=== PATIENT | male | born 1970 | race Hispanic/Latino ===

== ENCOUNTER 2025-02-03 16:41 | Emergency (ER) | payer OTHER ==
[~2025-02-03] VITALS: Ht 165.1 cm; Wt 170.6 kg
[2025-02-03 17:13] VITALS: TEMP 98.8
[2025-02-03 17:43] LABS: BASOPHILS % 0.5 % (0.0-1.0); EOSINOPHILS % 3.3 % (0.0-6.0); LYMPHOCYTES % 34.5 % (18.0-39.1); MONOCYTES % 8.3 % (4.4-11.3); NEUTROPHILS % 53.0 % (38.7-80.0); RED CELL DISTRIBUTION WIDTH 14.0 % (11.7-14.4)
[2025-02-03 18:03] LABS: EST GLOMERULAR FILTRATION RATE 106.0 ML/MIN (>=60)
[2025-02-03] MEDS ORDERED: IOPAMIDOL 370 MG/ML 100 ML INFUS..BTL INJ ONE (18:18)
[2025-02-03] MEDS: KETOROLAC TROMETHAMINE 30 MG/ML VIAL IV STA (22:31)
[2025-02-03] MEDS: CYCLOBENZAPRINE HCL 10 MG TAB PO ONE (22:31)
[2025-02-03] MEDS ORDERED: CYCLOBENZAPRINE10 MG PO (22:48)
[2025-02-03 23:00] VITALS: PULSE 84; RESP 17; O2SAT 97
[2025-02-04] MEDS ORDERED: IOPAMIDOL 370 MG/ML 100 ML INFUS..BTL INJ ONE (05:51)
== END 2025-02-03 23:05 | disposition home or self-care (01) ==
LOC: ER 17:09
DX: R20.0 Anesthesia of skin (principal); M54.12 Radiculopathy, cervical region; I10 Essential (primary) hypertension; E11.9 Type 2 diabetes mellitus without complications; R94.31 Abnormal electrocardiogram [ECG] [EKG]
CPT/HCPCS: 36415; 70450; 71045; 71260; 72125; 80053; 82550; 83690; 83880; 84484; 85025; 93005; 99284; J1885; Q9967